=== PATIENT | male | born 1985 | race Caucasian/White ===

== ENCOUNTER 2017-01-04 07:00 | Emergency (ER) | payer BC ==
--- NOTE | 2017-01-21 08:17 | ER ---
ADMIT: 01/04/2017 RM/LOC: ER [facility] MR#: [id number] [address] [id number] [address] [place] [address] Emergency Room Report SEX: M AGE: 31 : 1985 DATE: 01/04/2017 ADDENDUM: A 31-year-old white male coming in with a little chest pain, little shortness of breath. He had this for the last couple of days. He has had this intermittently and last May had about the same thing. He has had a CTA of the chest, that was negative. 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 Last evaluation by Cardiology, essentially [facility]. He has had left arm and left shoulder operation several weeks ago. CBC, chemistry, troponin, BNP, chest x-ray, and EKG all are negative. I spoke with Dr. Novoa, she will follow up with him. CONDITION ON DISCHARGE: Good. Albert Phillips MD/ ashely JOB #: [id number] CC: Albert Phillips MD, Attending Physician Amanda Novoa MD, Family Physician
== END 2017-01-04 10:20 | disposition home or self-care (01) ==
LOC: ER 07:00
DX: R07.89 Other chest pain (principal)